=== PATIENT | male | born 1965 | race Caucasian/White ===

== ENCOUNTER 2017-05-17 12:04 | Emergency (ER) | payer BC, OTHER ==
[~2017-05-17] VITALS: Ht 185.4 cm; Wt 118.0 kg
[~2017-05-17 12:04] MED LIST: ATOR10TA82 PO
[2017-05-17 12:12] VITALS: Ht 185.4 cm; Wt 118.0 kg
[2017-05-17] MEDS ORDERED: KETOROLAC TROMETHAMINE 30 MG/ML VIAL IV STA (12:45)
[2017-05-17] MEDS ORDERED: ONDANSETRON INJ 2 MG/ML 2 ML VIAL IV STA (12:45)
[2017-05-17] MEDS ORDERED: SODIUM CHLORIDE 0.9% 1000ML 2,000 ML IV STA (12:45)
[2017-05-17 12:52] LABS: BASO % 0.1 %; BASO ABS # 0.01 K/uL (0-0.2); EOS % 0.4 %; EOS ABS # 0.04 K/uL (0-0.5); HEMATOCRIT 44.8 % (42-52); HEMOGLOBIN 16.4 g/dL (14.0-18.0); IG# 0.01 K/uL (0.00-0.02); LYMPH % 11.9 %; LYMPH ABS # 1.06 K/uL (1.2-3.4); MEAN CELL VOLUME 83.7 fL (80-100); MEAN CORPUSCULAR HEMOGLOBIN 30.7 pg (25-34); MEAN CORPUSCULAR HGB CONC 36.6 g/dl (32-36); MEAN PLATELET VOLUME 10.1 fL (7.4-10.4); MONO % 7.6 %; MONO ABS # 0.68 K/uL (0.11-0.59); NEUT % 79.9 %; NEUT ABS # 7.09 K/uL (1.4-6.5); PLATELET COUNT 153 K/uL (130-400); RED CELL DISTRIBUTION WIDTH SD 38.9 fL (36.4-46.3); WHITE BLOOD COUNT 8.89 K/uL (4.8-10.8)
[2017-05-17] MEDS ORDERED: OPTIRAY 320 IV PRN (13:00)
[2017-05-17 13:11] LABS: ALBUMIN 4.3 gm/dl (3.4-5.0); CALCIUM 9.3 mg/dl (8.5-10.1); CREATININE 1.09 mg/dl (0.60-1.40); POTASSIUM 3.4 mmol/L (3.5-5.1)
[2017-05-17 13:14] LABS: TOTAL PROTEIN 8.5 gm/dl (6.4-8.2)
--- NOTE | 2017-05-17 14:29 | DIAGNOSTIC IMAGING REPORT ---
ABD/PELVIS IV CONTRAST ONLY CLINICAL HISTORY: 51 years-old Male presenting with abd pain w fever in rlq. TECHNIQUE: Multidetector CT of the abdomen and pelvis was performed after the administration of intravenous contrast. IV contrast: 93 mL of Optiray 320. A dose lowering technique was used consistent with the principles of ALARA (as low as reasonably achievable). COMPARISON: None. CT DOSE (mGy.cm): The estimated cumulative dose is 1086.15 mGycm. FINDINGS: International Sourcing Manager topogram: Unremarkable. Lung bases: Minimal basilar opacities, likely atelectasis. Top normal cardiac size. No pericardial or pleural effusion. Liver: Normal morphology. Suggestion of hepatic steatosis. Perfusional variation along the fissure for the ligamentum teres. Patent hepatic vasculature. Biliary: No intrahepatic or extrahepatic biliary ductal dilatation. Normal gallbladder. Pancreas: Normal. Spleen: Normal. Adrenal glands: Normal. Kidneys and ureters: Exophytic simple appearing cyst arising from the upper pole the left kidney. Punctate nonobstructing calculus may also be present at the upper pole the left kidney. No hydronephrosis. Minimal perinephric fat stranding bilaterally, nonspecific. Ureters normal. Bladder: Normal. Pelvic organs: Prostate and seminal vesicles normal. Bowel: Normal appendix. No bowel obstruction. Peritoneal cavity: No free fluid or intraperitoneal gas. Lymph nodes: No enlarged lymph nodes in the abdomen or pelvis. Vasculature: Aorta and IVC patent and normal in caliber. Abdominal wall: Fat-containing ventral hernias may be present. Possible varicoceles bilaterally. Musculoskeletal: Normal. IMPRESSION: 1. Hepatic steatosis. Correlate with liver function tests to exclude steatohepatitis as a cause for abdominal pain. 2. No other evidence of acute intra-abdominal pathology. Electronically signed by: Earl Gannon M.D. 05/17/2017 2:28 PM Dictated Date/Time: 05/17/2017 2:21 PM
[2017-05-17] MEDS ORDERED: ACETAMINOPHEN 500 MG TAB PO STA (14:38)
[2017-05-17 14:39] VITALS: O2SAT 92
--- NOTE | 2017-05-17 15:02 | DIAGNOSTIC IMAGING REPORT ---
CHEST ONE VIEW PORTABLE CLINICAL HISTORY: Fever. COMPARISON STUDY: Chest radiograph September 21, 2014. FINDINGS: Lung volumes are at the lower limits of normal. Blunting of the left costophrenic angle is likely due to epicardial fat. Note is made of mild cardiomegaly without evidence for pulmonary edema. There is no consolidation to suggest pneumonia. IMPRESSION: 1. No acute cardiopulmonary findings. 2. Mild cardiomegaly. Electronically signed by: Baljit Tucker M.D. 05/17/2017 3:01 PM Dictated Date/Time: 05/17/2017 3:00 PM
--- NOTE | 2017-05-17 15:40 | DIAGNOSTIC IMAGING REPORT ---
ABDOMINAL ULTRASOUND, RIGHT UPPER QUADRANT HISTORY: Right upper quadrant abdominal pain and elevated bilirubin w/ fever. COMPARISON: Abdomen and pelvis CT 05/17/2017. FINDINGS: Pancreas: The pancreatic tail is obscured by overlying bowel gas. The remaining portions of the pancreas are within normal limits. Liver: The liver is echogenic consistent with fatty change. 21 cm in length. Gallbladder: No gallbladder wall thickening. No gallstones. CBD: 3 mm. Right kidney: No hydronephrosis. IMPRESSION: 1. Normal gallbladder. No gallstones. 2. Hepatomegaly demonstrating fatty change. Electronically signed by: Suhas Fuentes M.D. 05/17/2017 3:38 PM Dictated Date/Time: 05/17/2017 3:37 PM
[2017-05-17 16:25] VITALS: BP 154/81; PULSE 86; TEMP 37; O2SAT 91
[2017-05-17 16:54] LABS: INFLUENZA B ANTIGEN Neg for Influ B (NEG)
--- NOTE | 2017-05-17 19:06 | EMERGENCY ROOM VISIT NOTE ---
History Report prepared by Damasoibroddy: Herberth Hernández Under the Supervision of: Dr. Oswaldo Baltazar D.O. First contact with patient: 12:36 Chief Complaint: ABDOMINAL PAIN Stated Complaint: ABD PAIN History of Present Illness The patient is a 51 year old male who presents to the Emergency Room with complaints of constant diffuse abdominal pain beginning one week ago. He also complains of abdominal distension, headache, cough and fevers. His fevers began last night (peaked at 101 degrees). He has a history of IBS, and states that his symptoms feel like a typical exacerbation of IBS other than the prolonged length of time. The patient has not passed gas recently. His most recent bowel movement was three days ago. Nothing has improved his symptoms. The patient adds that he has not had anything to. Or drink for almost 24 hours. Pain is located in his right lower/periumbilical region. He notes that he does have a mild headache and this feels consistent with his previous headaches when he does not have caffeine or does not drink. Pt denies testicular swelling, change in vision, chest pain, shortness of breath, nausea, vomiting, diarrhea, pain with urination, and melena. Source of History: patient Onset: One week ago Position: abdomen (diffuse) Timing: constant Modifying Factors (Relieving): other (none) Associated Symptoms: + fevers (peaked at 101 degrees), + headache, + cough, No chest pain, No SOB, No nausea, No vomiting, No melena, No diarrhea, No urinary symptoms Review of Systems See HPI for pertinent positives & negatives. A total of 10 systems reviewed and were otherwise negative. Past Medical & Surgical Medical Problems: (1) IBS (irritable bowel syndrome) (2) Influenza-like symptoms Family History No pertinent family history stated. Social History Smoking Status: Never Smoker Alcohol Use: occasionally Drug Use: none Marital Status: Housing Status: lives with family Occupation Status: employed Current/Historical Medications Scheduled Atorvastatin (Lipitor), Unknown Dose PO DAILY Allergies Coded Allergies: Penicillins (Verified Allergy, Unknown, RASH, 05/17/17) Physical Exam Vital Signs Date Time Temp Pulse Resp B/P (MAP) Pulse Ox O2 Delivery O2 Flow Rate FiO2 05/17/17 16:25 37.0 86 16 154/81 91 05/17/17 14:54 90 14 150/96 96 Nasal Cannula 2.0 05/17/17 14:39 92 Nasal Cannula 2.0 05/17/17 14:38 88 16 152/82 92 Nasal Cannula 2.0 05/17/17 13:24 38.7 91 20 179/93 05/17/17 12:12 38.3 94 20 162/90 96 Room Air Physical Exam GENERAL: Sitting up in bed, slightly ill appearing, no acute distress, non- toxic. EYE EXAM: normal conjunctiva. OROPHARYNX: no exudate, no erythema, lips, buccal mucosa, and tongue normal and mucous membranes are moist NECK: supple, no nuchal rigidity, no adenopathy, non-tender LUNGS: Clear to auscultation. Normal chest wall mechanics HEART: no murmurs, S1 normal and S2 normal ABDOMEN: abdomen soft, normo-active bowel sounds, no masses, no rebound or guarding. Tender to palpation in the RLQ. BACK: Back is symmetrical on inspection and there is no deformity, no midline tenderness, no CVA tenderness. SKIN: no rashes and no bruising UPPER EXTREMITIES: upper extremities are grossly normal. LOWER EXTREMITIES: No pitting edema. NEURO EXAM: Normal sensorium, cranial nerves II-XII grossly intact, normal speech, no gross weakness of arms, no gross weakness of legs. Medical Decision & Procedures ER Provider Diagnostic Interpretation: Radiology results as stated below per my review and the radiologist's interpretation: ABD/PELVIS IV CONTRAST ONLY FINDINGS: Licensed Psychiatric Technician topogram: Unremarkable. Lung bases: Minimal basilar opacities, likely atelectasis. Top normal cardiac size. No pericardial or pleural effusion. Liver: Normal morphology. Suggestion of hepatic steatosis. Perfusional variation along the fissure for the ligamentum teres. Patent hepatic vasculature. Biliary: No intrahepatic or extrahepatic biliary ductal dilatation. Normal gallbladder. Pancreas: Normal. Spleen: Normal. Adrenal glands: Normal. Kidneys and ureters: Exophytic simple appearing cyst arising from the upper pole the left kidney. Punctate nonobstructing calculus may also be present at the upper pole the left kidney. No hydronephrosis. Minimal perinephric fat stranding bilaterally, nonspecific. Ureters normal. Bladder: Normal. Pelvic organs: Prostate and seminal vesicles normal. Bowel: Normal appendix. No bowel obstruction. Peritoneal cavity: No free fluid or intraperitoneal gas. Lymph nodes: No enlarged lymph nodes in the abdomen or pelvis. Vasculature: Aorta and IVC patent and normal in caliber. Abdominal wall: Fat-containing ventral hernias may be present. Possible varicoceles bilaterally. Musculoskeletal: Normal. IMPRESSION: 1. Hepatic steatosis. Correlate with liver function tests to exclude steatohepatitis as a cause for abdominal pain. 2. No other evidence of acute intra-abdominal pathology. Electronically signed by: Earl Gannon M.D. 05/17/2017 2:28 PM ABDOMINAL ULTRASOUND, RIGHT UPPER QUADRANT FINDINGS: Pancreas: The pancreatic tail is obscured by overlying bowel gas. The remaining portions of the pancreas are within normal limits. Liver: The liver is echogenic consistent with fatty change. 21 cm in length. Gallbladder: No gallbladder wall thickening. No gallstones. CBD: 3 mm. Right kidney: No hydronephrosis. IMPRESSION: 1. Normal gallbladder. No gallstones. 2. Hepatomegaly demonstrating fatty change. Electronically signed by: Suhas Fuentes M.D. 05/17/2017 3:38 PM CHEST ONE VIEW PORTABLE FINDINGS: Lung volumes are at the lower limits of normal. Blunting of the left costophrenic angle is likely due to epicardial fat. Note is made of mild cardiomegaly without evidence for pulmonary edema. There is no consolidation to suggest pneumonia. IMPRESSION: 1. No acute cardiopulmonary findings. 2. Mild cardiomegaly. Electronically signed by: Baljit Tucker M.D. 05/17/2017 3:01 PM Laboratory Results 05/17/17 12:45 Red Blood Count 5.35, Mean Corpuscular Volume 83.7, Mean Corpuscular Hemoglobin 30.7, Mean Corpuscular Hemoglobin Concent 36.6, Mean Platelet Volume 10.1, Neutrophils (%) (Auto) 79.9, Lymphocytes (%) (Auto) 11.9, Monocytes (%) (Auto) 7.6, Eosinophils (%) (Auto) 0.4, Basophils (%) (Auto) 0.1, Neutrophils # (Auto) 7.09, Lymphocytes # (Auto) 1.06, Monocytes # (Auto) 0.68, Eosinophils # (Auto) 0.04, Basophils # (Auto) 0.01 05/17/17 12:45 Test 05/17/17 12:45 05/17/17 12:52 05/17/17 12:55 05/17/17 16:20 White Blood Count 8.89 K/uL (4.8-10.8) Red Blood Count 5.35 M/uL (4.7-6.1) Hemoglobin 16.4 g/dL (14.0-18.0) Hematocrit 44.8 % (42-52) Mean Corpuscular Volume 83.7 fL (80-100) Mean Corpuscular Hemoglobin 30.7 pg (25-34) Mean Corpuscular Hemoglobin Concent 36.6 g/dl (32-36) Platelet Count 153 K/uL (130-400) Mean Platelet Volume 10.1 fL (7.4-10.4) Neutrophils (%) (Auto) 79.9 % Lymphocytes (%) (Auto) 11.9 % Monocytes (%) (Auto) 7.6 % Eosinophils (%) (Auto) 0.4 % Basophils (%) (Auto) 0.1 % Neutrophils # (Auto) 7.09 K/uL (1.4-6.5) Lymphocytes # (Auto) 1.06 K/uL (1.2-3.4) Monocytes # (Auto) 0.68 K/uL (0.11-0.59) Eosinophils # (Auto) 0.04 K/uL (0-0.5) Basophils # (Auto) 0.01 K/uL (0-0.2) RDW Standard Deviation 38.9 fL (36.4-46.3) RDW Coefficient of Variation 13.0 % (11.5-14.5) Immature Granulocyte % (Auto) 0.1 % Immature Granulocyte # (Auto) 0.01 K/uL (0.00-0.02) D-Dimer 380 ug/L FEU (0-500) Anion Gap 6.0 mmol/L (3-11) Est Creatinine Clear Calc Drug Dose 105.5 ml/min Estimated GFR () 89.3 Estimated GFR (Non- 77.1 BUN/Creatinine Ratio 9.2 (10-20) Calcium Level 9.3 mg/dl (8.5-10.1) Total Bilirubin 1.7 mg/dl (0.2-1) Direct Bilirubin 0.3 mg/dl (0-0.2) Aspartate Amino Transf (AST/SGOT) 28 U/L (15-37) Alanine Aminotransferase (ALT/SGPT) 63 U/L (12-78) Alkaline Phosphatase 105 U/L (45-117) Total Protein 8.5 gm/dl (6.4-8.2) Albumin 4.3 gm/dl (3.4-5.0) Lipase 152 U/L (73-393) Urine Color DK YELLOW Urine Appearance ERROR (CLEAR) Urine pH 6.0 (4.5-7.5) Urine Specific [place] 1.026 (1.000-1.030) Urine Protein 1+ (NEG) Urine Glucose (UA) NEG (NEG) Urine Ketones 1+ (NEG) Urine Occult Blood NEG (NEG) Urine Nitrite NEG (NEG) Urine Bilirubin NEG (NEG) Urine Urobilinogen NEG (NEG) Urine Leukocyte Esterase NEG (NEG) Urine WBC (Auto) 1-5 /hpf (0-5) Urine RBC (Auto) 0-4 /hpf (0-4) Urine Hyaline Casts (Auto) 1-5 /lpf (0-5) Urine Epithelial Cells (Auto) 0-5 /lpf (0-5) Urine Bacteria (Auto) NEG (NEG) Lactic Acid Level 1.2 mmol/L (0.4-2.0) Influenza Type A Antigen Neg for Influ A (NEG) Influenza Type B Antigen Neg for Influ B (NEG) Laboratory results per my review. Medications Administered Medications (Trade) Dose Ordered Sig/Anai Route Start Time Stop Time Status Last Admin Dose Admin Sodium Chloride 2,000 ml @ 999 mls/hr Q2H1M STAT IV 05/17/17 12:45 05/17/17 14:45 DC 05/17/17 12:57 999 MLS/HR Ondansetron HCl (Zofran Inj) 4 mg NOW STAT IV 05/17/17 12:45 05/17/17 12:47 DC 05/17/17 12:57 4 MG Ketorolac Tromethamine (Toradol Inj) 30 mg NOW STAT IV 05/17/17 12:45 05/17/17 12:47 DC 05/17/17 12:57 30 MG Acetaminophen (Tylenol Tab) 1,000 mg NOW STAT PO 05/17/17 14:38 05/17/17 14:39 DC 05/17/17 14:53 1,000 MG ED Course ED COURSE: Vital signs were reviewed and showed hypertension and fever. The patients medical record was reviewed The above diagnostic studies were performed and reviewed. ED treatments and interventions as stated above. 1238: The patient was evaluated in room B5. A complete history and physical examination was performed. 1245: Ordered Toradol Inj 30 mg IV, Zofran Inj 4 mg IV, Sodium Chloride 2000 ml @ 999 mls/hr IV. 1435: I updated the patient on his test results. 1438: Ordered Tylenol Tab 1000 mg PO. 1556: Upon reevaluation, the patient is resting. I discussed my findings with the patient and he understands and agrees with the treatment plan. He declines lumbar puncture. Based on the patients age, coexisting illnesses, exam and lab findings the decision to treat as an outpatient was made. The patient remained stable while under my care. The patient appeared well at the time of discharge. Medical Decision Differential diagnoses includes but is not limited to gastritis, peptic ulcer disease, GERD, gallbladder disease, pancreatitis, small bowel obstruction, acute coronary syndrome, pericarditis, ischemic bowel, irritable bowel disease, irritable bowel syndrome, appendicitis, diverticulitis, malignancy, hernia, urinary tract infection, torsion, perforation, trauma, infectious. Patient is otherwise healthy 51-year-old male with a past medical history of IBS that presents to ER for infraumbilical right lower quadrant abdominal pain associated with a fever of 101 at home. He has no upper respiratory symptoms. No chest pain or shortness of breath. IV was established and labs were obtained. CBC along with BMP, LFTs, bilirubin and lipase were remarkable for a mild hypokalemia at 3.4 slightly elevated bilirubin at 1.7. Lactic acid was normal at 1.1. After an unremarkable CT of the abdomen and pelvis I did obtain an ultrasound of the right upper quadrant. This was negative as well. Chest x- ray was then obtained due to the fevers and his pulse ox 92-94% on room air. D- dimer was negative. He does have sleep apnea. Discuss performing an LP in regards to his headache but he notes that this headache is very typical for him is unchanged in any way from these usual headaches that he receives. He had no nuchal rigidity. Updated them at bedside and patient was discharged. I did stress the importance of returning for any worsening of his symptoms. His only true complaint is the right lower quadrant abdominal pain without bowel movement with a negative CT and ultrasound. He was given discharge instructions for MiraLAX. He declined LP following informed refusal of care and will follow up with his PCP as an outpatient. He will need a repeat abdominal check tomorrow morning. Discussed with Pt concerning signs and symptoms to watch out for. Pt was instructed to follow up with their PCP and discussed with the patient their option to return to the ED at anytime for persistent or worsening symptoms. The appropriate anticipatory guidance and out- patient management, including indications for return to the emergency department , were explained at length to the patient and understood. Medication Reconcilliation Current Medication List: was personally reviewed by me Blood Pressure Screening Patient's blood pressure: Elevated blood pressure Blood pressure disposition: Elevated BP felt to be situational Impression Primary Impression: Abdominal pain Additional Impression: Fever Scribe Attestation The scribe's documentation has been prepared under my direction and personally reviewed by me in its entirety. I confirm that the note above accurately reflects all work, treatment, procedures, and medical decision making performed by me. Departure Information Dispostion Home / Self-Care Referrals Mikki Chakraborty PA-C (PCP) Forms Call Back Authorization, HOME CARE DOCUMENTATION FORM, IMPORTANT VISIT INFORMATION Patient Instructions Abdominal Pain - [facility], [facility] Additional Instructions Please follow up with your primary care doctor with in the next 24 hours. Any worsening of your symptoms, please return to the ED immediately. This includes any fevers greater than 100.4, neck pain, worsening headache, worsening pain, chest pain, shortness breath, persistent nausea, vomiting, unable to eat or drink, or any other concerning signs or symptoms from your standpoint. You will receive a phone call 2-4 hours of your flu is positive. Please take 250 g of MiraLAX and mix with 64 ounces of Gatorade. Drink 8 ounces every 15-20 minutes until you have a bowel movement. Problem Qualifiers Primary Impression: Abdominal pain Abdominal location: unspecified location Qualified Codes: R10.9 - Unspecified abdominal pain Additional Impression: Fever Fever type: unspecified Qualified Codes: R50.9 - Fever, unspecified
== END 2017-05-17 16:25 | disposition home or self-care (01) ==
LOC: C.EDB 12:05
DX: R10.31 Right lower quadrant pain (principal); R50.9 Fever, unspecified; R03.0 Elevated blood-pressure reading, without diagnosis of hypertension; R17 Unspecified jaundice; E87.6 Hypokalemia; R14.0 Abdominal distension (gaseous); R05 Cough; R51 Headache; K58.9 Irritable bowel syndrome, unspecified; Z88.0 Allergy status to penicillin